=== PATIENT | female | born 1960 | race Caucasian/White ===

== ENCOUNTER → 2017-12-14 | Outpatient (CLI) | payer BC ==
[2017-12-14 11:38] LABS: HCT 39.6 % (34.0-46.0); HGB 12.9 gm/dL (11.4-16.0); MCH 28.5 pg (25.0-35.0); MCHC 32.4 g/dL (31.0-37.0); Mean Platelet Volume 6.9; Platelet Count 232 k/uL (150-450); RDW 13.8 % (11.5-15.5); WBC 2.5 k/uL (3.8-10.6)
[2017-12-14 14:11] LABS: Monocytes # (M) 0.28 k/uL (0-1.0); Neutrophils # (M) 0.43 k/uL (1.3-7.7); Neutrophils % (M) 17 %; Nucleated Red Blood Cells 0 /100 WBC (0-0); Total Cells Counted 100
[2017-12-14 14:12] LABS: Anisocytosis (M) Present; Poikilocytosis (M) Present
== END | disposition home or self-care (01) ==
LOC: LABWHC1 10:38
DX: R53.83 Other fatigue (principal)
CPT/HCPCS: 36415; 85025